=== PATIENT | male | born 2000 | race Caucasian/White ===

== ENCOUNTER 2018-04-21 05:05 | Emergency (ER) | payer OTHER ==
[2018-04-21 07:26] LABS: APPEARANCE,URINE CLEAR; BILIRUBIN,URINE NEGATIVE (NEGATIVE); COLOR,URINE YELLOW; GLUCOSE, URINE NEGATIVE (NEGATIVE); KETONES,URINE NEGATIVE (NEGATIVE); LEUKOCYTE ESTERASE,URINE NEGATIVE (NEGATIVE); NITRITE,URINE NEGATIVE (NEGATIVE); PROTEIN,URINE NEGATIVE (NEGATIVE); URINE SPECIFIC GRAVITY 1.023
[2018-04-21 07:46] LABS: URINE AMPHETAMINES SCREEN NEGATIVE; URINE BARBITURATES SCREEN NEGATIVE; URINE BENZODIAZEPINES SCREEN NEGATIVE; URINE COCAINE SCREEN NEGATIVE; URINE MARIJUANA (THC) SCREEN NEGATIVE; URINE METHADONE SCREEN NEGATIVE; URINE PHENCYCLIDINE SCREEN NEGATIVE
[2018-04-21 07:57] LABS: ABSOLUTE EOSINOPHILS # (AUTO) 0.1 10^3/uL (0.0-0.6); ABSOLUTE LYMPHOCYTES (AUTO) 1.4 10^3/uL (0.5-4.7); ABSOLUTE MONOCYTES (AUTO) 0.1 10^3/uL (0.1-1.4); ABSOLUTE NEUT (AUTO) 3.4 10^3/uL (1.7-8.2); BASOPHILS % (AUTO) 0.5 % (0-2); EOSINOPHILS % (AUTO) 1.1 % (0-6); HEMATOCRIT 43.1 % (37.9-51.0); HEMOGLOBIN 15.1 g/dL (13.5-17.0); LYMPHOCYTES % (AUTO) 27.3 % (13-45); MEAN CORPUSCULAR HEMOGLOBIN 30.5 pg (27.0-33.4); MEAN CORPUSCULAR HGB CONC 35.1 g/dL (32.0-36.0); MEAN CORPUSCULAR VOLUME 87 fl (80-97); PLATELET COUNT 202 10^3/uL (150-450); RED BLOOD COUNT 4.95 10^6/uL (4.35-5.55); RED CELL DISTRIBUTION WIDTH 13.2 % (11.5-14.0); SEGMENTED NEUTROPHILS % (AUTO) 68.1 % (42-78); TOTAL CELLS COUNTED % (AUTO) 100 %
[2018-04-21 08:08] LABS: ACETAMINOPHEN < 10 ug/mL (10-30); ALANINE AMINOTRANSFERASE 52 U/L (21-72); ALBUMIN 4.9 g/dL (3.5-5.0); ALCOHOL < 10 mg/dL (NONE DETECTED); ALKALINE PHOSPHATASE 80 U/L (38-126); ANION GAP 10 (5-19); ASPARTATE AMINO TRANSFERASE 28 U/L (17-59); BILIRUBIN,DIRECT 0.1 mg/dL (0.0-0.4); BILIRUBIN,TOTAL 0.4 mg/dL (0.2-1.3); BLOOD UREA NITROGEN 15 mg/dL (7-20); CALCIUM 9.7 mg/dL (8.4-10.2); CARBON DIOXIDE 28 mmol/L (22-30); CHLORIDE 103 mmol/L (98-107); GLUCOSE 101 mg/dL (75-110); POTASSIUM 4.5 mmol/L (3.6-5.0); SALICYLATE < 1.0 mg/dL (2.0-20.0); TOTAL PROTEIN 7.2 g/dL (6.3-8.2)
--- NOTE | 2018-04-21 09:18 | PSYCHOLOGICAL NOTE ---
Psych Note - Psych Note Date seen by psych provider: 04/21/18 Time seen by psych provider: 08:34 Psych Note: Reason for Consult: Suicidal ideation Consent permissions: Patient's , Isabell, at bedside per patient's request Patient arrived to [facility] ED via his because of thoughts of wanting to harm himself. He reports that he has been feeling depressed and thoughts of harming himself for 2 weeks. He reports he has a plan of overdosing on his pills. He reports that it does come and go and "right this second" he does not have thoughts of wanting to harm himself however confirms and may happen again. Patient denies having any formal mental health diagnosis, and no medications currently. Patient reports he has no history of wanting to harm himself or engaging in self harming behaviors/maladaptive coping skills. He reports that he does not have an outpatient mental health provider however did just recently meet with a therapist that he felt helped briefly after the session. When discussing possible triggers he reports that he feels that it is "working all the time I am tired and wait for my ." Patient reports his unit is 6 and confirms they are aware of his current location. Patient is alert and orientated to person, place, time and circumstance. Mood is dysphoric with flat affect. Patient endorses suicidal ideation with a plan of overdose. Patient denies homicidal ideation. Delusions are absent behaviors congruent with an intact reality based presentation i.e. organized and linear thought process. Eye contact is poor as patient continually looks down towards his own lap. Conversational speech is within normal rate, tone and prosody. Intellectual abilities appear to be within the average range. Attention and concentration are fair. Insight, judgment, impulse control are poor to fair. No medication or conditions at this time 311 (F32.9) unspecified depressive disorder Impression\\plan: Patient is recommended for IVC. Patient is disclosing suicidal ideation with a plan of overdosing. Patient reports new onset within the last 2 weeks. Patient does not have any history of mental health. Patient is active duty. Dr. Meraz has accepted patient to [facility]; transportation will occur today. Dr. Ledbetter was consulted and care management this patient; attending physicians in agreement with recommendations and disposition.
[2018-04-21 10:00] VITALS: BP 136/71
--- NOTE | 2018-04-21 10:01 | ER Document Report ---
Doctor's Note Notes: 04/21/18 10:01 Patient evaluated and in no acute distress. He is endorsing suicidal ideation. Plan is to transfer patient to [facility] for inpatient psychiatric management. Patient is still on IVC and awaiting transportation.
--- NOTE | 2018-04-21 10:57 | ER Document Report ---
Entered by NOEL RNADLE SCRIBE 04/21/18 0714 Acting as scribe for:WYATT DEL TORO MD ED Psych Disorder / Suicide - General Chief Complaint: Psych Problem Stated Complaint: PSYCH PROBLEM Time Seen by Provider: 04/21/18 06:14 Mode of Arrival: Ambulatory Information source: Patient Notes: 18-year-old male who presents to the emergency department today after a suicidal attempt by taking his prescribed dosage of x3 4mg methylprednisolone tablets this morning. Patient states he was prescribed this about a week ago for "numb toes" and did not take any until today. Patient states he has been depressed for the last 1-2 weeks, has a pressure in his chest, and no motivation. Patient states that he "cannot take it anymore". TRAVEL OUTSIDE OF THE [place] IN LAST 30 DAYS: No Past Medical History - General Information source: Patient - Social History Smoking Status: Never Smoker Cigarette use (# per day): No Chew tobacco use (# tins/day): No Frequency of alcohol use: None Drug Abuse: None Lives with: Family Family History: Reviewed & Not Pertinent Patient has suicidal ideation: Yes Patient has homicidal ideation: No - Medical History Medical History: Negative Surgical Hx: Negative Review of Systems - Review of Systems Constitutional: No symptoms reported EENT: No symptoms reported Cardiovascular: No symptoms reported Respiratory: No symptoms reported Gastrointestinal: No symptoms reported Genitourinary: No symptoms reported Male Genitourinary: No symptoms reported Musculoskeletal: No symptoms reported Skin: No symptoms reported Hematologic/Lymphatic: No symptoms reported Neurological/Psychological: See HPI, Depression -: Yes All other systems reviewed and negative Physical Exam - Vital signs Vitals: Temp Pulse Resp BP Pulse Ox 98 F 78 14 141/85 H 98 04/21/18 05:07 04/21/18 05:07 04/21/18 05:07 04/21/18 05:07 04/21/18 05:07 - Notes Notes: Physical Exam: General: Alert, appears well. HEENT: Normocephalic. Atraumatic. PERRL. Extraocular movements intact. Oropharynx clear. Neck: Supple. Non-tender. Respiratory: No respiratory distress. Clear and equal breath sounds bilaterally. Cardiovascular: Regular rate and rhythm. Abdominal: Normal Inspection. Non-tender. No distension. Normal Bowel Sounds. Back: Non-tender. No deformity or step off. Extremities: Moves all four extremities. Upper extremities: Normal inspection. Normal ROM. Lower extremities: Normal inspection. No edema. Normal ROM. Neurological: Normal cognition. AAOx4. Normal speech. Psychological: Flat affect. Depressed. Skin: Warm. Dry. Normal color. Course - Vital Signs Vital signs: Temp Pulse Resp BP Pulse Ox 97.8 F 86 14 136/71 H 98 04/21/18 09:59 04/21/18 09:59 04/21/18 05:07 04/21/18 09:59 04/21/18 09:59 - Laboratory Result Diagrams: 04/21/18 07:39 04/21/18 07:39 Laboratory results interpreted by me: 04/21/18 04/21/18 07:00 07:39 Urine Urobilinogen 2.0 H Salicylates < 1.0 L Acetaminophen < 10 L - EKG Interpretation by Ma EKG shows normal: Sinus rhythm, [place], Intervals, QRS Complexes, ST-T Waves Rate: Normal - 69 Rhythm: NSR Discharge - Discharge Clinical Impression: Suicidal ideation, Drug ingestion Depression Qualifiers: Depression Type: unspecified Qualified Code(s): F32.9 - Major depressive disorder, single episode, unspecified High blood pressure Qualifiers: Hypertension type: essential hypertension Qualified Code(s): I10 - Essential (primary) hypertension Condition: Stable Disposition: [facility] I personally performed the services described in the documentation, reviewed and edited the documentation which was dictated to the scribe in my presence, and it accurately records my words and actions.
--- NOTE | 2018-04-21 23:18 | EKG REPORT ---
SEVERITY:- NORMAL ECG - SINUS RHYTHM : Confirmed by: Monisha Mcfarlane MD 21-Apr-2018 23:18:15
== END 2018-04-21 12:31 ==
LOC: ER 05:05
DX: T38.0X2A Poisoning by glucocorticoids and synthetic analogues, intentional self-harm, initial encounter (principal); F32.9 Major depressive disorder, single episode, unspecified; I10 Essential (primary) hypertension; R07.9 Chest pain, unspecified; Y92.9 Unspecified place or not applicable
CPT/HCPCS: 36415; 80053; 80307; 81001; 84443; 85025; 93005; 93010; 99285